=== PATIENT | female | born 1990 | race Caucasian/White ===

== ENCOUNTER 2018-10-02 20:00 | Emergency (ER) | payer BC ==
[~2018-10-02] VITALS: Ht 157.5 cm; Wt 106.6 kg
[2018-10-02 20:04] VITALS: BP 123/67
--- NOTE | 2018-10-02 20:07 | NUR ---
TO LOBBY A/W BED AMBULATORY
--- NOTE | 2018-10-02 20:07 | NUR ---
28 Y/O FEMALE PRESENTS TO ED WITH BILAT LOWER ABD CRAMPING X1 DAY. ALSO C/O LEFT FLANK PAIN. NO VAG BLEEDING. NO N/V. 11 WEEKS . 5/10 PAIN. AFEBRILE WITH VSS. ABD SOFT AND NON-TENDER. POSITIONED IN BED FOR COMFORT. ER MD AWARE. CONTINUE TO MONITOR.
[2018-10-02 20:35] LABS: BASOPHILS % (AUTO) 0.3 % (0.0-2.0); EOSINOPHILS # (AUTO) 0.1 K/uL (0-0.4); EOSINOPHILS % (AUTO) 1.3 % (0.0-4.0); HEMATOCRIT 37.2 % (36-48); HEMOGLOBIN 12.5 g/dL (12.0-16.0); LYMPHOCYTES % (AUTO) 24.9 % (20.5-51.1); MEAN CORPUSCULAR HEMOGLOBIN 29 pg (27-31); MEAN CORPUSCULAR HGB CONC 34 g/dL (33-37); MEAN CORPUSCULAR VOLUME 87.3 fL (80-94); MONOCYTES # (AUTO) 0.6 K/uL (0.8-1.0); MONOCYTES % (AUTO) 6.8 % (1.7-9.3); NEUTROPHILS # (AUTO) 5.4 K/uL (1.8-7.7); NEUTROPHILS % (AUTO) 66.7 % (42.2-75.2); PLATELET COUNT (AUTO) 207 K/uL (140-450); RED BLOOD CELL COUNT(AUTO) 4.26 MIL/uL (4.20-5.40); RED CELL DISTRIBUTION WIDTH 12.8 % (11.6-13.7); WHITE BLOOD COUNT (AUTO) 8.1 K/uL (4.8-10.8)
[2018-10-02 20:36] LABS: APPEARANCE,URINE HAZY (CLEAR); BILIRUBIN,URINE NEGATIVE (NEGATIVE); BLOOD, URINE NEGATIVE (NEGATIVE); COLOR,URINE YELLOW (YELLOW); LEUKOCYTE ESTERASE ,URINE NEGATIVE (NEGATIVE); NITRITE, URINE NEGATIVE (NEGATIVE); PH,URINE 7.5 (5.0-9.0); UGLUCOSE NEGATIVE (NEGATIVE)
--- NOTE | 2018-10-02 20:41 | NUR ---
PT RETURN FROM ULTRASOUND
--- NOTE | 2018-10-02 20:42 | NUR ---
Toney eastman in [facility] - 10/02/18 at 2043 by [email or web address] PT RETURNED FROM ULTRASOUND
[2018-10-02 20:49] LABS: ANION GAP 14.7 (8-16); CARBON DIOXIDE 22.3 mmol/L (21-32); CREATININE 0.6 mg/dL (0.6-1.3)
[2018-10-02 20:55] LABS: TOTAL BILIRUBIN 0.2 mg/dL (0.0-1.0)
[2018-10-02] MEDS ORDERED: ACETAMINOPHEN EXTRA STRENGTH 500 MG TAB PO ONE (20:55)
[2018-10-02 21:22] VITALS: BP 124/70
--- NOTE | 2018-10-02 21:22 | NUR ---
DISCHARGE PAPERS GIVEN TO PT. 0/10 ABD PAIN. PT STATES RELIEF AND HAS OBGYN APPOINTMENT ON 10/11/18. INSTRUCTED TO F/U WITH OB AND PCP AND WHEN TO RETURN TO ER. PT VERBALLIZED UNDERSTANDING OF DC INSTRUCTIONS. ALL QUESTIONS ANSWERED.
== END 2018-10-02 21:22 | disposition home or self-care (01) ==
LOC: MED 20:00
DX: O26.891 Other specified pregnancy related conditions, first trimester (principal); R10.30 Lower abdominal pain, unspecified; E11.9 Type 2 diabetes mellitus without complications; I10 Essential (primary) hypertension; Z90.49 Acquired absence of other specified parts of digestive tract; Z98.890 Other specified postprocedural states; Z3A.10 10 weeks gestation of pregnancy
CPT/HCPCS: 36415; 76817; 80053; 81003; 84702; 85025; 86900; 86901; 99284; Q0092